=== PATIENT | male | born 1985 | race African-American/Black ===

== ENCOUNTER 2023-11-12 07:20 | Emergency (ER) | payer SELFPAY ==
[2023-11-12 07:31] VITALS: BP 131/72; PULSE 78; RESP 18; TEMP 98; BMI 28.7
[2023-11-12] MEDS ORDERED: LIDOCAINE 4% PATCH TP ONE (08:40)
[2023-11-12] MEDS ORDERED: KETOROLAC TROMETHAMINE 30 MG/1 ML VIAL ONE (08:40)
[2023-11-12] MEDS ORDERED: METHOCARBAMOL 500 MG TABLET ONE (08:40)
[2023-11-12] MEDS: KETOROLAC TROMETHAMINE 30 MG/1 ML VIAL IM ONE (08:45)
[2023-11-12] MEDS: METHOCARBAMOL 500 MG TABLET PO ONE (08:45)
[2023-11-12] MEDS: LIDOCAINE 4% PATCH TP ONE (08:45)
== END 2023-11-12 09:36 | disposition home or self-care (01) ==
LOC: JER 07:20 → JERFT 07:20
PROC: 3E0233Z Introduction of Anti-inflammatory into Muscle, Percutaneous Approach (ICD-10-PCS; principal; 2023-11-12)
DX: M54.50 Low back pain, unspecified (principal); S39.012A Strain of muscle, fascia and tendon of lower back, initial encounter; X58.XXXA Exposure to other specified factors, initial encounter
CPT/HCPCS: 99284-25

== ENCOUNTER 2024-01-16 13:56 | Emergency (ER) | payer SELFPAY ==
[2024-01-16 14:02] VITALS: RESP 18; TEMP 98.6; BMI 28.7
[2024-01-16] MEDS ORDERED: ACETAMINOPHEN 325 MG TABLET (FP) ONE (14:39)
[2024-01-16] MEDS: ACETAMINOPHEN 500 MG TABLET (FP) PO ONE (14:46)
[2024-01-16] MEDS ORDERED: PROPOFOL 20 ML ONE (15:13)
[2024-01-16] MEDS ORDERED: KETAMINE HCL 200 MG/20 ML VIAL ONE (15:13)
[2024-01-16] MEDS: PROPOFOL 200 MG/20 ML VIAL IVPUSH ONE ×6 (16:03→16:12)
[2024-01-16] MEDS: KETAMINE HCL 200 MG/20 ML VIAL IVPUSH ONE ×4 (16:04→16:12)
[2024-01-16 16:12] VITALS: BP 148/73; PULSE 77
== END 2024-01-16 17:44 | disposition home or self-care (01) ==
LOC: JER 13:56
PROC: 0RSJXZZ Reposition Right Shoulder Joint, External Approach (ICD-10-PCS; principal; 2024-01-16)
DX: S43.004A Unspecified dislocation of right shoulder joint, initial encounter (principal); R20.2 Paresthesia of skin; X50.0XXA Overexertion from strenuous movement or load, initial encounter; Y93.67 Activity, basketball
CPT/HCPCS: 73030-TC-RT-FY; 99283-25